=== PATIENT | female | born 1960 | race Caucasian/White ===

== ENCOUNTER 2018-02-09 07:00 | Day surgery (SDC) | payer BC, OTHER ==
[2018-02-06 14:54] VITALS: BMI 30.4
[2018-02-09] MEDS ORDERED: PROPOFOL 20 ML ONE ×2 (07:09)
[2018-02-09] MEDS ORDERED: LIDOCAINE HCL/PF 2% SDV 5ML VIAL ONE (07:10)
[2018-02-09 07:15] VITALS: TEMP 98
[2018-02-09 09:35] VITALS: BP 113/65; PULSE 57
--- NOTE | 2018-02-10 15:00 | PATH ---
Surgical Pathology Report Patient Name: SON ZELAYA [facility]. Rec. #: [id number] /Age/Gender: 1960 (Age: 57) / F Account: [id number] Location: [facility]-ENDOSCOPY Taken: 02/09/2018 Received: 02/09/2018 Reported: 02/10/2018 Physicians: Shad Cuevas M.D. Specimen(s) Received A: BX CECUM B: RIGHT COLON C: TRANSVERSE D: LEFT COLON E: BX SIGMOID F: RECTO SIGMOID G: RECTUM Clinical History Ulcerative colitis Postoperative diagnosis: Rule out dysplasia Final Diagnosis A. CECUM, BIOPSY: COLONIC MUCOSA WITH MILD CHRONIC INFLAMMATION AND LYMPHOID AGGREGATE. B. RIGHT COLON, BIOPSY: COLONIC MUCOSA WITH MILD CHRONIC INFLAMMATION. C. TRANSVERSE COLON, BIOPSY: COLONIC MUCOSA WITH MILD CHRONIC INFLAMMATION AND LYMPHOID AGGREGATE. D. LEFT COLON, BIOPSY: COLONIC MUCOSA WITH MILD CHRONIC INFLAMMATION AND LYMPHOID AGGREGATE. E. SIGMOID, BIOPSY: COLONIC MUCOSA WITH MILD CHRONIC INFLAMMATION. F. RECTOSIGMOID, BIOPSY: COLONIC MUCOSA WITH MILD CHRONIC INFLAMMATION AND LYMPHOID AGGREGATE. G. RECTUM, BIOPSY: COLONIC MUCOSA WITH MILD CHRONIC INFLAMMATION. COMMENT: NEGATIVE FOR DYSPLASIA. NO EVIDENCE OF ACUTE CRYPTITIS OR CRYPT ABSCESS. Electronically Signed Mauricio Martinez M.D. Gross Description A. Received in formalin, labeled "cecum" are 2 hall, irregular portions of soft tissue measuring 0.4 and 0.5 cm. in greatest dimension. The specimens are submitted in toto in one cassette. B. Received in formalin, labeled "right colon" are 4 hall, irregular portions of soft tissue ranging from 0.4-0.5 cm. in greatest dimension. The specimens are submitted in toto in one cassette. C. Received in formalin, labeled "transverse" are 3 hall, irregular portions of soft tissue ranging from 0.3-0.4 cm. in greatest dimension. The specimens are submitted in toto in one cassette. D. Received in formalin, labeled "left colon" are 6 hall, irregular portions of soft tissue ranging from 0.2-0.4 cm. in greatest dimension. The specimens are submitted in toto in one cassette. E. Received in formalin, labeled "sigmoid" are 4 hall, irregular portions of soft tissue ranging from 0.2-0.5 cm. in greatest dimension. The specimens are submitted in toto in one cassette. F. Received in formalin, labeled "rectosigmoid" are 3 hall, irregular portions of soft tissue ranging from 0.3-0.4 cm. in greatest dimension. The specimens are submitted in toto in one cassette. G. Received in formalin, labeled "rectum" are 4 hall, irregular portions of soft tissue ranging from 0.1-0.2 cm. in greatest dimension. The specimens are submitted in toto in one cassette. [facility]
== END 2018-02-09 09:35 | disposition home or self-care (01) ==
LOC: FASU-ENDO 07:00
PROVIDERS: ATTEND Internal Medicine Gastroenterology
PROC: 0DBN8ZX Excision of Sigmoid Colon, Via Natural or Artificial Opening Endoscopic, Diagnostic (ICD-10-PCS; 2018-02-09)
PROC: 0DBP8ZX Excision of Rectum, Via Natural or Artificial Opening Endoscopic, Diagnostic (ICD-10-PCS; 2018-02-09)
PROC: 0DBM8ZX Excision of Descending Colon, Via Natural or Artificial Opening Endoscopic, Diagnostic (ICD-10-PCS; 2018-02-09)
PROC: 0DBH8ZX Excision of Cecum, Via Natural or Artificial Opening Endoscopic, Diagnostic (ICD-10-PCS; 2018-02-09)
PROC: 0DBK8ZX Excision of Ascending Colon, Via Natural or Artificial Opening Endoscopic, Diagnostic (ICD-10-PCS; principal; 2018-02-09 08:27)
PROC: 0DBL8ZX Excision of Transverse Colon, Via Natural or Artificial Opening Endoscopic, Diagnostic (ICD-10-PCS; 2018-02-09 08:27)
DX: Z87.19 Personal history of other diseases of the digestive system (principal); Z80.0 Family history of malignant neoplasm of digestive organs; K62.89 Other specified diseases of anus and rectum; K63.89 Other specified diseases of intestine; K57.30 Diverticulosis of large intestine without perforation or abscess without bleeding
CPT/HCPCS: 88305-TC